=== PATIENT | male | born 1960 | race Caucasian/White ===

== ENCOUNTER 2016-02-27 14:01 | Emergency (ER) | payer OTHER ==
[~2016-02-27 14:01] MED LIST: ANAPROX DS550 MG PO; BACTRIM DS 8001 TAB PO; CIPRO HC 0.2%-110 ML OT; CLARITIN10 MG PO; CYCLOBENZAPRINE5 M3 PO; HYDROCODONE BIT1 T11 PO; HYDRODIURIL25 MG PO; KEFLEX500 M1 PO; KEFLEX500 MG PO; LOVASTATIN10 MG PO; Motrin,Rufen800 MG PO; NORCO 10-325 T1 EACH PO; NORCO 325 MG-51 TAB PO; NORCO 5-325 TA1 EACH PO; NORVASC10 MG PO; NORVASC5 MG PO; OMEPRAZOLE PO; OMEPRAZOLE20 M1 PO; PERCOCET; PERCOCET 325 MG1 TA7 PO; ULTRAM50 MG PO; VIBRAMYCIN100 MG PO; VICODIN 500 MG-1 TAB PO; ZOCOR20 MG PO
[2016-02-27 14:07] VITALS: BP 145/90
[2016-02-27] MEDS ORDERED: ZOFRAN ODT4 MG SL (14:24)
[2016-02-27] MEDS ORDERED: DOXYCYCLINE100 M3 PO (14:24)
[2016-04-04] MEDS ORDERED: PROVENTIL0.09 MG/A1 INH ×2 (05:43→08:44)
[2016-04-04] MEDS ORDERED: VIBRAMYCIN100 MG PO (08:44)
== END 2016-02-27 14:30 | disposition home or self-care (01) ==
LOC: ED 14:01
DX: J20.9 Acute bronchitis, unspecified (principal); I10 Essential (primary) hypertension

== ENCOUNTER 2016-05-18 03:45 | Inpatient (IN) | payer OTHER ==
[2016-05-18] VITALS (12 sets, daily range): BP systolic 114–162; BP diastolic 65–107
[~2016-05-18] VITALS: Ht 172.7 cm; Wt 91.3 kg
--- NOTE | ~2016-05-18 | ST ---
[place], [place] EXERCISE STRESS TEST REPORT [facility]: [id number] #: [id number] ROOM: 503 DOCTOR: CAS RUBIN MD BIRTHDATE: [birth year] DOS: 05/19/2016 LEXISCAN STRESS EKG REPORT REFERRING PHYSICIAN: Dr. Browne. INDICATION: Central chest pain. The patient's baseline EKG shows normal sinus rhythm with an incomplete right bundle-branch block with a baseline heart rate of 67 beats per minute and blood pressure of 114/66. The patient's peak heart rate was 104 with a blood pressure of 126/76. The patient had no chest pain. No EKG changes. No arrhythmias noted. SUMMARY OF FINDINGS: 1. Unremarkable Lexiscan stress EKG. 2. Please see separate report for perfusion scan results. CAS RUBIN MD CM:STRESS:EXERCISE STRESS TEST REPORT [id number] CAS RUBIN MD
[~2016-05-18 03:45] MED LIST changes: +DOXYCYCLINE100 M3 PO; +PROVENTIL0.09 MG/A1 INH; +ZOFRAN ODT4 MG SL
[2016-05-18 04:31] LABS: BASO # 0.1 10*3/uL (0.0-0.1); BASO % 0.8 % (0.0-1.0); EOS # 0.3 10*3/uL (0.0-0.4); EOS % 3.9 % (1.0-4.0); HEMATOCRIT 43.2 % (42.0-52.0); HEMOGLOBIN 14.9 g/dl (14.0-18.0); LYMPH # 2.6 10*3/uL (1.3-4.4); LYMPH % 34.6 % (27.0-41.0); MEAN CELL VOLUME 84.5 fl (80.0-94.0); MEAN CORPUSCULAR HGB 29.2 pg (27.0-31.0); MEAN CORPUSCULAR HGB CONC 34.5 g/dl (33.0-37.0); MEAN PLATELET VOLUME 9.1 fl (9.6-12.3); MONO # 0.4 10*3/uL (0.1-1.0); MONO % 4.8 % (3.0-9.0); NEUT # 4.1 10*3/uL (2.3-7.9); NEUT % 55.5 % (47.0-73.0); PLATELET COUNT AUTOMATED 245 10*3/uL (130-400); RED BLOOD COUNT 5.11 10*6/uL (4.50-5.90); RED CELL DISTRI WIDTH 13.6 % (0-14.5); WHITE BLOOD COUNT 7.4 10*3/uL (4.8-10.8)
[2016-05-18 04:41] LABS: INTERNATIONAL NORM RATIO 0.9 (2.0-3.5); PROTHROMBIN TIME 9.5 SECONDS (9.0-12.4)
[2016-05-18 04:48] LABS: ALKALINE PHOSPHATASE 68 U/L (45-117); BILIRUBIN, TOTAL 0.3 mg/dl (0.2-1.0); BUN 11 mg/dl (7-24); CARBON DIOXIDE 22 mmol/L (21-32); CHLORIDE 106 mmol/L (98-107); EST GLOM FILT AFRICAN AMERICAN > 60 ml/min; GLUCOSE 108 mg/dL (65-99); POTASSIUM 3.9 mmol/L (3.5-5.1); SGOT/AST 12 IU/L (3-35); SGPT/ALT 37 U/L (12-78); SODIUM 140 mmol/L (136-145); TOTAL PROTEIN 7.3 gm/dL (6.4-8.2)
[2016-05-18 04:49] LABS: TROPONIN I < 0.015 ng/ml (<0.045)
[2016-05-18 05:17] LABS: BILIRUBIN NEGATIVE (NEGATIVE); BLOOD NEGATIVE (NEGATIVE); CLARITY CLEAR (CLEAR); COLOR YELLOW (YELLOW); GLUCOSE NEGATIVE (NEGATIVE); KETONE NEGATIVE (NEGATIVE); LEUKO ESTERASE NEGATIVE (NEGATIVE); NITRITE NEGATIVE (NEGATIVE); PROTEIN NEGATIVE (NEGATIVE); UROBILINOGEN 0.2 E.U./dl (0.2-1.0)
[2016-05-18 05:27] LABS: BACTERIA TRACE; EPITHELIAL CELLS 0-2; RBC 0-2 rbc/hpf (0-2); URINE REFLEX COMMENT NO (NO); WBC 0-2 wbc/hpf (0-5)
[2016-05-18 07:47] LABS: BASO # 0.1 10*3/uL (0.0-0.1); BASO % 0.6 % (0.0-1.0); EOS # 0.1 10*3/uL (0.0-0.4); EOS % 1.3 % (1.0-4.0); HEMATOCRIT 46.7 % (42.0-52.0); LYMPH # 1.9 10*3/uL (1.3-4.4); LYMPH % 18.9 % (27.0-41.0); MEAN CELL VOLUME 84.6 fl (80.0-94.0); MEAN CORPUSCULAR HGB CONC 34.3 g/dl (33.0-37.0); MONO # 0.4 10*3/uL (0.1-1.0); MONO % 4.1 % (3.0-9.0); NEUT # 7.3 10*3/uL (2.3-7.9); NEUT % 74.8 % (47.0-73.0); PLATELET COUNT AUTOMATED 289 10*3/uL (130-400); RED BLOOD COUNT 5.52 10*6/uL (4.50-5.90); RED CELL DISTRI WIDTH 13.8 % (0-14.5); WHITE BLOOD COUNT 9.8 10*3/uL (4.8-10.8)
[2016-05-18 08:19] LABS: BUN 10 mg/dl (7-24); CARBON DIOXIDE 22 mmol/L (21-32); CHLORIDE 106 mmol/L (98-107); CHOLESTEROL 258 mg/dL (<200); EST GLOM FILT AFRICAN AMERICAN > 60 ml/min; GLUCOSE 104 mg/dL (65-99); MAGNESIUM 2.5 mg/dL (1.5-2.1); PHOSPHOROUS 1.5 mg/dL (2.5-4.9); SODIUM 139 mmol/L (136-145); TRIGLYCERIDES 191 mg/dl (<150); VLDL CHOLESTEROL 38 mg/dL (6-40)
[2016-05-18 08:21] LABS: INTERNATIONAL NORM RATIO 0.9 (2.0-3.5); PROTHROMBIN TIME 9.3 SECONDS (9.0-12.4)
[2016-05-18 08:27] LABS: FREE T4 0.91 ng/dl (0.76-1.46); HDL CHOLESTEROL 56 mg/dl (40-60); LDL CHOLESTEROL 164 mg/dL (9-159); THYROID STIM HORMONE (HS) 0.895 uIU/ml (0.358-4.75)
[2016-05-18 08:28] LABS: HEMOGLOBIN A1c 5.6 % (4.8-5.6)
[2016-05-18 12:13] LABS: CKMB 0.8 ng/ml (0.5-3.6); CPK 60 U/L (39-308)
[2016-05-18 12:14] LABS: TROPONIN I < 0.015 ng/ml (<0.045)
[2016-05-18 18:15] LABS: CKMB 0.8 ng/ml (0.5-3.6); CPK 55 U/L (39-308)
[2016-05-18 18:16] LABS: TROPONIN I < 0.015 ng/ml (<0.045)
[2016-05-19] VITALS: BP 133/97
[2016-05-19 00:14] LABS: CKMB 0.6 ng/ml (0.5-3.6); CPK 54 U/L (39-308)
[2016-05-19 00:15] LABS: TROPONIN I < 0.015 ng/ml (<0.045)
[2016-05-19 06:03] LABS: BASO # 0.1 10*3/uL (0.0-0.1); BASO % 0.8 % (0.0-1.0); EOS # 0.3 10*3/uL (0.0-0.4); EOS % 3.1 % (1.0-4.0); HEMATOCRIT 47.6 % (42.0-52.0); HEMOGLOBIN 16.3 g/dl (14.0-18.0); LYMPH # 2.8 10*3/uL (1.3-4.4); LYMPH % 28.8 % (27.0-41.0); MEAN CELL VOLUME 84.4 fl (80.0-94.0); MEAN CORPUSCULAR HGB 28.9 pg (27.0-31.0); MEAN CORPUSCULAR HGB CONC 34.2 g/dl (33.0-37.0); MEAN PLATELET VOLUME 9.1 fl (9.6-12.3); MONO # 0.5 10*3/uL (0.1-1.0); MONO % 5.5 % (3.0-9.0); NEUT # 5.9 10*3/uL (2.3-7.9); NEUT % 61.5 % (47.0-73.0); PLATELET COUNT AUTOMATED 278 10*3/uL (130-400); RED BLOOD COUNT 5.64 10*6/uL (4.50-5.90); WHITE BLOOD COUNT 9.6 10*3/uL (4.8-10.8)
[2016-05-19 06:27] LABS: BUN 10 mg/dl (7-24); CARBON DIOXIDE 24 mmol/L (21-32); CHLORIDE 110 mmol/L (98-107); EST GLOM FILT AFRICAN AMERICAN > 60 ml/min; GLUCOSE 107 mg/dL (65-99); POTASSIUM 4.3 mmol/L (3.5-5.1); SODIUM 142 mmol/L (136-145)
[2016-05-19 06:31] LABS: INTERNATIONAL NORM RATIO 0.9 (2.0-3.5)
[2016-05-19 08:00] VITALS: BP 110/50
[2016-05-19 12:00] VITALS: BP 131/98
[2016-05-19] MEDS ORDERED: XARE20MG PO (15:20)
[2016-05-19] MEDS ORDERED: METOPROLOL SUC100 M1 PO (15:20)
[2016-05-19] MEDS ORDERED: ASPIRIN CHEWABL81 M1 PO (15:20)
[2016-05-19] MEDS ORDERED: ATORVASTATIN CA40 M1 PO (15:20)
== END 2016-05-19 16:00 | disposition home or self-care (01) | DRG 309 ==
LOC: ED 03:45 → 5E 06:02 → EDHOLD 06:02 → 5E 07:37
PROVIDERS: Emergency Medicine Emergency Medical Services; Internal Medicine; Student in an Organized Health Care Education/Training Program
DX: I48.1 Persistent atrial fibrillation (principal); Q25.43 Congenital aneurysm of aorta; I71.2 Thoracic aortic aneurysm, without rupture; R13.10 Dysphagia, unspecified; S00.03XA Contusion of scalp, initial encounter; I10 Essential (primary) hypertension; E78.5 Hyperlipidemia, unspecified; I45.10 Unspecified right bundle-branch block; I25.2 Old myocardial infarction; Z87.891 Personal history of nicotine dependence; Z82.49 Family history of ischemic heart disease and other diseases of the circulatory system; Z80.9 Family history of malignant neoplasm, unspecified; Z79.51 Long term (current) use of inhaled steroids; Z79.2 Long term (current) use of antibiotics; Z79.899 Other long term (current) drug therapy

== ENCOUNTER 2016-08-02 10:40 | Emergency (ER) | payer OTHER ==
[~2016-08-02] VITALS: Wt 94.3 kg
[~2016-08-02 10:40] MED LIST changes: +ASPIRIN CHEWABL81 M1 PO; +ATORVASTATIN CA40 M1 PO; +METOPROLOL SUC100 M1 PO; +XARE20MG PO
[2016-08-02 10:47] VITALS: BP 147/97
[2016-08-02] MEDS ORDERED: ZESTRIL,PRINIVIL5 MG PO (10:48)
[2016-08-02 11:11] LABS: BASO # 0.1 10*3/uL (0.0-0.1); EOS # 0.2 10*3/uL (0.0-0.4); HEMATOCRIT 42.5 % (42.0-52.0); HEMOGLOBIN 14.5 g/dl (14.0-18.0); LYMPH # 2.4 10*3/uL (1.3-4.4); LYMPH % 34.4 % (27.0-41.0); MEAN CELL VOLUME 84.5 fl (80.0-94.0); MEAN CORPUSCULAR HGB 28.8 pg (27.0-31.0); MEAN CORPUSCULAR HGB CONC 34.1 g/dl (33.0-37.0); MEAN PLATELET VOLUME 9.1 fl (9.6-12.3); MONO # 0.4 10*3/uL (0.1-1.0); MONO % 5.8 % (3.0-9.0); NEUT % 55.5 % (47.0-73.0); PLATELET COUNT AUTOMATED 232 10*3/uL (130-400); RED BLOOD COUNT 5.03 10*6/uL (4.50-5.90); RED CELL DISTRI WIDTH 13.7 % (0-14.5); WHITE BLOOD COUNT 7.1 10*3/uL (4.8-10.8)
[2016-08-02 11:28] LABS: BUN 9 mg/dl (7-24); CARBON DIOXIDE 24 mmol/L (21-32); CHLORIDE 106 mmol/L (98-107); EST GLOM FILT AFRICAN AMERICAN > 60 ml/min; GLUCOSE 96 mg/dL (65-99); POTASSIUM 3.6 mmol/L (3.5-5.1); SODIUM 144 mmol/L (136-145); TROPONIN I < 0.015 ng/ml (<0.045)
[2016-08-02] MEDS ORDERED: NASONEX0.05 MG/AC NAS (12:15)
== END 2016-08-02 12:34 | disposition home or self-care (01) ==
LOC: ED 10:40
PROVIDERS: Emergency Medicine
DX: J06.9 Acute upper respiratory infection, unspecified (principal); R42 Dizziness and giddiness; I10 Essential (primary) hypertension; E78.5 Hyperlipidemia, unspecified; I25.2 Old myocardial infarction; I48.91 Unspecified atrial fibrillation; Z79.82 Long term (current) use of aspirin; Z79.899 Other long term (current) drug therapy; Z87.891 Personal history of nicotine dependence

== ENCOUNTER 2016-10-05 17:18 | Emergency (ER) | payer OTHER ==
[~2016-10-05] VITALS: Wt 93.4 kg
[~2016-10-05 17:18] MED LIST changes: +NASONEX0.05 MG/AC NAS; +ZESTRIL,PRINIVIL5 MG PO
[2016-10-05 17:24] VITALS: BP 143/93
[2016-10-05 18:02] LABS: BASO # 0.1 10*3/uL (0.0-0.1); BASO % 1.2 % (0.0-1.0); EOS # 0.3 10*3/uL (0.0-0.4); EOS % 4.3 % (1.0-4.0); HEMATOCRIT 40.1 % (42.0-52.0); HEMOGLOBIN 13.6 g/dl (14.0-18.0); LYMPH # 2.9 10*3/uL (1.3-4.4); LYMPH % 43.1 % (27.0-41.0); MEAN CELL VOLUME 86.8 fl (80.0-94.0); MEAN CORPUSCULAR HGB 29.4 pg (27.0-31.0); MEAN CORPUSCULAR HGB CONC 33.9 g/dl (33.0-37.0); MEAN PLATELET VOLUME 9.2 fl (9.6-12.3); MONO # 0.3 10*3/uL (0.1-1.0); MONO % 4.6 % (3.0-9.0); NEUT # 3.2 10*3/uL (2.3-7.9); NEUT % 46.7 % (47.0-73.0); PLATELET COUNT AUTOMATED 218 10*3/uL (130-400); RED BLOOD COUNT 4.62 10*6/uL (4.50-5.90); RED CELL DISTRI WIDTH 13.9 % (0-14.5); WHITE BLOOD COUNT 6.8 10*3/uL (4.8-10.8)
[2016-10-05 18:11] LABS: ACT PARTIAL THROMBO TIME 25.6 SECONDS (20.8-31.5); INTERNATIONAL NORM RATIO 0.9 (2.0-3.5)
[2016-10-05 18:18] LABS: ALBUMIN 3.7 gm/dl (3.1-4.5); ALKALINE PHOSPHATASE 65 U/L (45-117); BUN 9 mg/dl (7-24); CHLORIDE 107 mmol/L (98-107); CREATININE 1.35 mg/dL (0.70-1.30); POTASSIUM 3.9 mmol/L (3.5-5.1); SGOT/AST 9 IU/L (3-35); SGPT/ALT 24 U/L (12-78); SODIUM 140 mmol/L (136-145); TOTAL PROTEIN 6.6 gm/dL (6.4-8.2)
[2016-10-05] MEDS ORDERED: FLAGYL500 MG PO (19:51)
[2016-10-05] MEDS ORDERED: CIPRO250 MG PO (19:51)
== END 2016-10-05 20:39 | disposition home or self-care (01) ==
LOC: ED 17:18
PROVIDERS: Nurse Practitioner
DX: K52.9 Noninfective gastroenteritis and colitis, unspecified (principal); Z79.899 Other long term (current) drug therapy; Z87.891 Personal history of nicotine dependence

== ENCOUNTER 2016-10-07 16:08 | Emergency (ER) | payer OTHER ==
[~2016-10-07] VITALS: Ht 172.7 cm; Wt 93.4 kg
[~2016-10-07 16:08] MED LIST changes: +CIPRO250 MG PO; +FLAGYL500 MG PO
[2016-10-07 18:44] VITALS: BP 154/110
[2016-10-07] MEDS ORDERED: Motrin,Rufen800 MG PO ×2 (18:55→19:14)
== END 2016-10-07 19:09 | disposition home or self-care (01) ==
LOC: ED 16:08
DX: S50.12XA Contusion of left forearm, initial encounter (principal); M25.512 Pain in left shoulder; R51 Headache; M54.9 Dorsalgia, unspecified; M79.601 Pain in right arm; E78.5 Hyperlipidemia, unspecified; I10 Essential (primary) hypertension; I25.2 Old myocardial infarction; I48.91 Unspecified atrial fibrillation; Z79.899 Other long term (current) drug therapy; Z87.891 Personal history of nicotine dependence; V43.52XA Car driver injured in collision with other type car in traffic accident, initial encounter; Y93.89 Activity, other specified; Y92.413 State road as the place of occurrence of the external cause; Y99.8 Other external cause status

== ENCOUNTER 2016-10-29 09:03 | Emergency (ER) | payer OTHER ==
[~2016-10-29] VITALS: Ht 175.2 cm; Wt 94.3 kg
[2016-10-29 09:10] VITALS: BP 161/99
[2016-10-29 09:58] LABS: BASO # 0.1 10*3/uL (0.0-0.1); BASO % 1.1 % (0.0-1.0); EOS # 0.2 10*3/uL (0.0-0.4); EOS % 2.8 % (1.0-4.0); HEMOGLOBIN 15.5 g/dl (14.0-18.0); LYMPH # 2.4 10*3/uL (1.3-4.4); LYMPH % 37.8 % (27.0-41.0); MEAN CELL VOLUME 85.2 fl (80.0-94.0); MEAN CORPUSCULAR HGB 28.7 pg (27.0-31.0); MEAN CORPUSCULAR HGB CONC 33.7 g/dl (33.0-37.0); MEAN PLATELET VOLUME 9.2 fl (9.6-12.3); MONO # 0.3 10*3/uL (0.1-1.0); MONO % 4.7 % (3.0-9.0); NEUT # 3.4 10*3/uL (2.3-7.9); NEUT % 53.4 % (47.0-73.0); PLATELET COUNT AUTOMATED 248 10*3/uL (130-400); RED CELL DISTRI WIDTH 13.6 % (0-14.5); WHITE BLOOD COUNT 6.4 10*3/uL (4.8-10.8)
[2016-10-29 10:13] LABS: ALBUMIN 4.2 gm/dl (3.1-4.5); ALKALINE PHOSPHATASE 69 U/L (45-117); BUN 13 mg/dl (7-24); CHLORIDE 106 mmol/L (98-107); CREATININE 1.21 mg/dL (0.70-1.30); POTASSIUM 3.9 mmol/L (3.5-5.1); SGOT/AST 15 IU/L (3-35); SGPT/ALT 30 U/L (12-78); SODIUM 137 mmol/L (136-145); TOTAL PROTEIN 7.5 gm/dL (6.4-8.2)
[2016-10-29 10:29] LABS: BILIRUBIN 1+ (NEGATIVE); BLOOD TRACE-INTACT (NEGATIVE); CLARITY CLEAR (CLEAR); GLUCOSE TRACE (NEGATIVE); KETONE NEGATIVE (NEGATIVE); LEUKO ESTERASE NEGATIVE (NEGATIVE); NITRITE POSITIVE (NEGATIVE); PH 6.5 (5.0-9.0)
[2016-10-29 10:47] LABS: COLOR ORANGE (YELLOW); WBC 0-2 wbc/hpf (0-5)
[2016-10-29] MEDS ORDERED: LEVOFLOXACIN500 MG PO (11:39)
[2016-10-29] MEDS ORDERED: ZOFRAN ODT4 MG SL (11:40)
== END 2016-10-29 12:08 | disposition home or self-care (01) ==
LOC: ED 09:03
PROVIDERS: Emergency Medicine
DX: N39.0 Urinary tract infection, site not specified (principal); K40.90 Unilateral inguinal hernia, without obstruction or gangrene, not specified as recurrent; I10 Essential (primary) hypertension; E78.5 Hyperlipidemia, unspecified; Z87.891 Personal history of nicotine dependence

== ENCOUNTER 2017-01-21 17:12 | Emergency (ER) | payer OTHER ==
[~2017-01-21] VITALS: Ht 172.7 cm; Wt 95.3 kg
[~2017-01-21 17:12] MED LIST changes: +LEVOFLOXACIN500 MG PO
[2017-01-21 17:15] VITALS: BP 160/99
[2017-01-21] MEDS ORDERED: AUGMENTIN 875875 MG PO (19:02)
== END 2017-01-21 19:06 | disposition home or self-care (01) ==
LOC: ED 17:12
DX: J01.00 Acute maxillary sinusitis, unspecified (principal); E78.5 Hyperlipidemia, unspecified; I10 Essential (primary) hypertension; I48.91 Unspecified atrial fibrillation; Z87.891 Personal history of nicotine dependence; Z79.899 Other long term (current) drug therapy

== ENCOUNTER → 2017-03-13 | Day surgery (SDC) | payer OTHER ==
[2017-03-12 11:38] LABS: BUN 10 mg/dl (7-24); CHLORIDE 105 mmol/L (98-107); CREATININE 1.12 mg/dL (0.70-1.30); SODIUM 138 mmol/L (136-145)
[~2017-03-13] VITALS: Ht 172.7 cm; Wt 95.3 kg
[~2017-03-13] MED LIST changes: +AUGMENTIN 875875 MG PO
[2017-03-13 07:08] VITALS: BP 126/86
[2017-03-13 08:57] VITALS: BP 110/63
[2017-03-13 09:08] VITALS: BP 126/69
[2017-03-13 09:30] VITALS: BP 135/88
== END ==
LOC: SDC 03-12 10:15
DX: L72.0 Epidermal cyst (principal); D23.21 Other benign neoplasm of skin of right ear and external auricular canal; I25.2 Old myocardial infarction; I10 Essential (primary) hypertension; J45.909 Unspecified asthma, uncomplicated; K21.9 Gastro-esophageal reflux disease without esophagitis; F41.9 Anxiety disorder, unspecified; Z87.891 Personal history of nicotine dependence; Z98.890 Other specified postprocedural states; Z79.899 Other long term (current) drug therapy; F32.9 Major depressive disorder, single episode, unspecified; I25.10 Atherosclerotic heart disease of native coronary artery without angina pectoris; Z87.442 Personal history of urinary calculi; Z82.49 Family history of ischemic heart disease and other diseases of the circulatory system; Z80.9 Family history of malignant neoplasm, unspecified

== ENCOUNTER 2017-07-07 13:59 | Emergency (ER) | payer OTHER ==
[~2017-07-07] VITALS: Ht 172.7 cm; Wt 95.3 kg
[2017-07-07 14:04] VITALS: BP 133/91
[2017-07-07] MEDS ORDERED: NAPROSYN500 MG PO (14:09)
[2017-07-07] MEDS ORDERED: CHLORZOXAZONE500 M2 PO (14:09)
== END 2017-07-07 14:22 | disposition home or self-care (01) ==
LOC: ED 13:59
DX: M54.41 Lumbago with sciatica, right side (principal); E78.5 Hyperlipidemia, unspecified; I10 Essential (primary) hypertension; Z98.890 Other specified postprocedural states; Z87.891 Personal history of nicotine dependence; Z79.899 Other long term (current) drug therapy

== ENCOUNTER 2017-11-29 13:52 | Emergency (ER) | payer OTHER ==
[~2017-11-29] VITALS: Ht 172.7 cm; Wt 95.3 kg
[~2017-11-29 13:52] MED LIST changes: +CHLORZOXAZONE500 M2 PO; +NAPROSYN500 MG PO
[2017-11-29 14:34] VITALS: BP 138/90
[2017-11-29] MEDS ORDERED: ZYRTEC10 MG PO (14:49)
[2017-11-29] MEDS ORDERED: FLONASE ALLERG9.9 ML NAS (14:49)
[2017-11-29] MEDS ORDERED: Zofran4 MG SL (14:49)
[2017-11-29] MEDS ORDERED: PREDNISONE20 M1 PO (14:49)
[2017-11-29] MEDS ORDERED: PROAIR HFA8.5 GM INH (14:50)
[2017-11-29] MEDS ORDERED: CLARITIN10 MG PO (14:57)
== END 2017-11-29 15:03 | disposition home or self-care (01) ==
LOC: ED 13:52
DX: J06.9 Acute upper respiratory infection, unspecified (principal); J45.909 Unspecified asthma, uncomplicated; I10 Essential (primary) hypertension; I25.2 Old myocardial infarction; Z79.899 Other long term (current) drug therapy; Z87.891 Personal history of nicotine dependence

== ENCOUNTER 2018-01-20 12:40 | Emergency (ER) | payer OTHER ==
[~2018-01-20] VITALS: Ht 172.7 cm; Wt 95.7 kg
[~2018-01-20 12:40] MED LIST changes: +FLONASE ALLERG9.9 ML NAS; +PREDNISONE20 M1 PO; +PROAIR HFA8.5 GM INH; +ZYRTEC10 MG PO; +Zofran4 MG SL
[2018-01-20 12:45] VITALS: BP 139/105
== END 2018-01-20 14:35 | disposition left against medical advice (07) ==
LOC: ED 12:40
DX: H92.03 Otalgia, bilateral (principal); Z87.891 Personal history of nicotine dependence; Z79.899 Other long term (current) drug therapy

== ENCOUNTER 2018-04-21 11:05 | Emergency (ER) | payer OTHER ==
[~2018-04-21] VITALS: Ht 172.7 cm; Wt 95.3 kg
[2018-04-21 11:07] VITALS: BP 154/90
[2018-04-21] MEDS ORDERED: ZYRTEC10 MG PO (11:57)
[2018-04-21] MEDS ORDERED: PREDNISONE50 MG PO (11:57)
[2018-04-21] MEDS ORDERED: FLONASE ALLERG9.9 ML NAS (11:57)
[2018-04-21] MEDS ORDERED: AUGMENTIN 875-875 MG PO (11:57)
== END 2018-04-21 12:07 | disposition home or self-care (01) ==
LOC: ED 11:05
DX: J01.00 Acute maxillary sinusitis, unspecified (principal); J01.10 Acute frontal sinusitis, unspecified; I10 Essential (primary) hypertension; I48.91 Unspecified atrial fibrillation; I25.2 Old myocardial infarction; Z79.899 Other long term (current) drug therapy; Z87.891 Personal history of nicotine dependence

== ENCOUNTER 2018-05-12 14:24 | Inpatient (IN) | payer OTHER ==
[2018-05-12] VITALS (7 sets, daily range): BP systolic 114–151; BP diastolic 64–91
[~2018-05-12] VITALS: Ht 172.7 cm; Wt 91.8 kg
--- NOTE | ~2018-05-12 | EKG ---
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
--- NOTE | ~2018-05-12 | EKG ---
[place], [place] ELECTROCARDIOGRAM REPORT NAME: CT DAVIS V UNIT #: [id number] ROOM: 505 DOCTOR: EPIPHANY DRAFT REPORT BIRTHDATE: [birth year] [facility] Test Date: 2018-05-12 Test Time: 17:02:56 Pat Name: CT DAVIS Department: Room: 505 Gender: M Stitcher Operator: Jason Javed : 1960 Requested By: REJI WILLIS DNP Order Number: [id number] Reading MD: Tamir Martinez MD Measurements Intervals [place] Rate: 50 P: 31 MD: 150 QRS: -13 QRSD: 140 T: 10 QT: 447 QTc: 408 Interpretive Statements Sinus rhythm Right bundle branch block Baseline wander in lead(s) V5 Electronically Signed On 05-14-2018 4:15:18 PDT by Tamir Martinez MD CM:EKGRPT:ELECTROCARDIOGRAM REPORT [id number] REJI WILLIS DNP EPIPHANY DRAFT REPORT REJI WILLIS DNP
--- NOTE | ~2018-05-12 | EKG ---
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
[~2018-05-12 14:24] MED LIST changes: +AUGMENTIN 875-875 MG PO; +PREDNISONE50 MG PO
[2018-05-12 14:51] LABS: BASO # 0.1 10*3/uL (0.0-0.1); BASO % 0.9 % (0.0-1.0); EOS # 0.3 10*3/uL (0.0-0.4); HEMATOCRIT 43.5 % (42.0-52.0); HEMOGLOBIN 14.6 g/dl (14.0-18.0); LYMPH # 2.7 10*3/uL (1.3-4.4); LYMPH % 34.4 % (27.0-41.0); MEAN CELL VOLUME 85.8 fl (80.0-94.0); MEAN CORPUSCULAR HGB 28.8 pg (27.0-31.0); MEAN CORPUSCULAR HGB CONC 33.6 g/dl (33.0-37.0); MEAN PLATELET VOLUME 9.2 fl (9.6-12.3); MONO # 0.4 10*3/uL (0.1-1.0); MONO % 5.2 % (3.0-9.0); NEUT # 4.4 10*3/uL (2.3-7.9); NEUT % 55.2 % (47.0-73.0); PLATELET COUNT AUTOMATED 253 10*3/uL (130-400); RED BLOOD COUNT 5.07 10*6/uL (4.50-5.90); RED CELL DISTRI WIDTH 13.9 % (0-14.5); WHITE BLOOD COUNT 7.9 10*3/uL (4.8-10.8)
[2018-05-12 14:59] LABS: ACT PARTIAL THROMBO TIME 23.8 SECONDS (20.8-31.5); INTERNATIONAL NORM RATIO 0.9 (2.0-3.5)
[2018-05-12 15:14] LABS: ALBUMIN 3.8 gm/dl (3.1-4.5); ALKALINE PHOSPHATASE 73 U/L (45-117); BUN 8 mg/dl (7-24); CHLORIDE 105 mmol/L (98-107); CREATININE 1.08 mg/dL (0.70-1.30); POTASSIUM 4.1 mmol/L (3.5-5.1); SGOT/AST 13 IU/L (3-35); SGPT/ALT 27 U/L (12-78); SODIUM 138 mmol/L (136-145)
[2018-05-12 15:18] LABS: TROPONIN I < 0.015 ng/ml (<0.045)
--- NOTE | 2018-05-12 17:28 | NUR ---
PER DR. HOLLIDAY PT MUST HAVE CT HEAD FIRST BEFORE BEING TAKEN TO INPATIENT ROOM FOR ADMISSION.
--- NOTE | 2018-05-12 20:15 | NUR ---
A 58, admitted to 5E, under the services of KADEN Parr DO with a diagnosis of CHEST HEAVINESS. Chief complaint is SOB,CHEST HEAVINESS, NUMBNESS IN ARMS AND LEGS. Patient arrived via wheel chair from ER. Monitor applied. Initial assessment completed. Vital signs taken and recorded. KADEN PARR DO notified of admission to the unit. Orders received. See assessment for past medical history, medications and allergies. Patient and/or family oriented to unit. [facility] visitation policy reviewed. Clothing/patient valuable form completed. TESFAYE GLASS
--- NOTE | 2018-05-12 23:30 | NUR ---
ASSUMED CARE FOR THIS PT AT THIS TIME. NO C/O VOICED. CALL LIGHT IN REACH.
[2018-05-13] VITALS: BP 142/82
--- NOTE | 2018-05-13 05:28 | NUR ---
PT MEDICATED W/TYLENOL FOR C/O H/A. PT REMINDED OF TESTING TO BE DONE TODAY. CALL LIGHT IN REACH.
[2018-05-13 06:55] LABS: BASO # 0.1 10*3/uL (0.0-0.1); BASO % 0.8 % (0.0-1.0); EOS # 0.2 10*3/uL (0.0-0.4); EOS % 2.9 % (1.0-4.0); HEMATOCRIT 44.6 % (42.0-52.0); HEMOGLOBIN 15.2 g/dl (14.0-18.0); LYMPH # 2.1 10*3/uL (1.3-4.4); LYMPH % 27.8 % (27.0-41.0); MEAN CORPUSCULAR HGB CONC 34.1 g/dl (33.0-37.0); MEAN PLATELET VOLUME 9.2 fl (9.6-12.3); MONO # 0.3 10*3/uL (0.1-1.0); MONO % 4.2 % (3.0-9.0); NEUT # 4.9 10*3/uL (2.3-7.9); NEUT % 63.9 % (47.0-73.0); PLATELET COUNT AUTOMATED 235 10*3/uL (130-400); RED BLOOD COUNT 5.25 10*6/uL (4.50-5.90); RED CELL DISTRI WIDTH 13.9 % (0-14.5); WHITE BLOOD COUNT 7.7 10*3/uL (4.8-10.8)
[2018-05-13 07:29] LABS: ACT PARTIAL THROMBO TIME 29.1 SECONDS (20.8-31.5)
[2018-05-13 07:36] LABS: ALBUMIN 3.8 gm/dl (3.1-4.5); ALKALINE PHOSPHATASE 76 U/L (45-117); BUN 10 mg/dl (7-24); CHLORIDE 108 mmol/L (98-107); CHOLESTEROL 242 mg/dL (<200); CREATININE 1.03 mg/dL (0.70-1.30); FREE T4 1.12 ng/dl (0.76-1.46); HDL CHOLESTEROL 47 mg/dl (40-60); LDL CHOLESTEROL 169 mg/dL (9-159); PHOSPHOROUS 2.8 mg/dL (2.5-4.9); POTASSIUM 3.9 mmol/L (3.5-5.1); SGOT/AST 10 IU/L (3-35); SGPT/ALT 28 U/L (12-78); SODIUM 140 mmol/L (136-145); TOTAL PROTEIN 7.1 gm/dL (6.4-8.2); TRIGLYCERIDES 132 mg/dl (<150); VLDL CHOLESTEROL 26 mg/dL (6-40)
[2018-05-13 08:00] VITALS: BP 140/82
--- NOTE | 2018-05-13 10:14 | NUR ---
INFORMED SIGNED CONSENT FOR [facility] DR CARPENTER. RESTING EKG RBB HR 54 BP 150/90 IN SUPINE POSITION. STANDING HR 65 BP 138/88. PT COMPLETED 4:00 OF A JACQUELIN PROTOCOL WITH PT COMPLETING ONE MINUTE OF STAFE II AT 2.5 MPH AND A 12% GRADE. NO ARRHYTMIAS NOTED. NON DIAGNOSTIC ST CHANGES SEEN. PT C/O SOB, TEST TERMINATED DUE TO FATIGUE. PT REACHED A PEAK HR OF 156 WHICH REPRESENTS 96% OF PREDICTED MAXIMUM AND A PEAK BP OF 92. PT IN STABLE CONDITION, AWAITING NUCLEAR IMAGES WITH A HR OF 92 BP 146/82.
--- NOTE | 2018-05-13 14:22 | NUR ---
Health Care Sanitary Technician in to talk to patient. Patient states lives at HOME with . There are NO steps in the home. Physician: Brett DA SILVA [facility]acy: [facility] Home health services: NONE Patient's level of ADLs: INDEPENDENT Patient has working utilities: YES DME: NEBULIZER Follow-up physician's appointment after d/c: WILL BE MADE BY HOSPITALIST NURSE DIRECTOR ON DISCHARGE Does patient want to access PORTAL?: NO Discharge plan PT LIVES AT HOME WITH HIS AND IS INDEPENDENT IN CARE. DENIES HOME NEEDS ON DISCHARGE. WILL CONTINUE TO FOLLOW. HAS A RIDE HOME.. YARITZA COSME
[2018-05-13 16:00] VITALS: BP 138/98
--- NOTE | 2018-05-13 16:30 | NUR ---
Discharge instructions reviewed with patient/family. Patient receptive and verbalizes understanding. Follow-up care arranged. Written instructions given to patient/family. Patient ambulated from unit with all personal belongings and was educated on medications. URVASHI MARTINEZ
[2018-05-13] MEDS ORDERED: CRESTOR5 MG PO (16:35)
[2018-05-13] MEDS ORDERED: ASPIRIN81 M1 PO (16:35)
== END 2018-05-13 16:30 | disposition home or self-care (01) | DRG 392 ==
LOC: ED 14:24 → EDHOLD 16:43 → ED 16:43 → EDHOLD 17:16 → 5E 17:16 → EDHOLD 19:12 → 5E 19:16
PROVIDERS: Internal Medicine; Nurse Practitioner Family; ADMIT Internal Medicine
PROC: 4A02XM4 Measurement of Cardiac Total Activity, External Approach (ICD-10-PCS; principal; 2018-05-13)
PROC: 3E073KZ Introduction of Other Diagnostic Substance into Coronary Artery, Percutaneous Approach (ICD-10-PCS; principal; 2018-05-13)
DX: K21.9 Gastro-esophageal reflux disease without esophagitis (principal); J45.20 Mild intermittent asthma, uncomplicated; I45.10 Unspecified right bundle-branch block; I10 Essential (primary) hypertension; M54.30 Sciatica, unspecified side; I20.8 Other forms of angina pectoris; I45.81 Long QT syndrome; I34.0 Nonrheumatic mitral (valve) insufficiency; I77.819 Aortic ectasia, unspecified site; M54.10 Radiculopathy, site unspecified; E78.5 Hyperlipidemia, unspecified; I48.0 Paroxysmal atrial fibrillation; Z79.82 Long term (current) use of aspirin; I25.2 Old myocardial infarction; Z87.440 Personal history of urinary (tract) infections; Z87.891 Personal history of nicotine dependence; Z82.49 Family history of ischemic heart disease and other diseases of the circulatory system; Z80.6 Family history of leukemia; Z79.899 Other long term (current) drug therapy

== ENCOUNTER → 2018-05-27 | Outpatient (CLI) | payer OTHER ==
[~2018-05-27] MED LIST changes: +ASPIRIN81 M1 PO; +CRESTOR5 MG PO
[2018-05-27 09:14] LABS: HEMATOCRIT 41.9 % (42.0-52.0); MEAN CELL VOLUME 87.8 fl (80.0-94.0); MEAN CORPUSCULAR HGB 29.4 pg (27.0-31.0); MEAN CORPUSCULAR HGB CONC 33.4 g/dl (33.0-37.0); RED BLOOD COUNT 4.77 10*6/uL (4.50-5.90); RED CELL DISTRI WIDTH 14.1 % (0-14.5); WHITE BLOOD COUNT 5.6 10*3/uL (4.8-10.8)
[2018-05-27 09:48] LABS: ALBUMIN 3.8 gm/dl (3.1-4.5); ALKALINE PHOSPHATASE 85 U/L (45-117); BUN 7 mg/dl (7-24); CHLORIDE 106 mmol/L (98-107); CHOLESTEROL 215 mg/dL (<200); CREATININE 1.05 mg/dL (0.70-1.30); HDL CHOLESTEROL 48 mg/dl (40-60); LDL CHOLESTEROL 142 mg/dL (9-159); POTASSIUM 3.9 mmol/L (3.5-5.1); SGOT/AST 19 IU/L (3-35); SGPT/ALT 44 U/L (12-78); SODIUM 138 mmol/L (136-145); TRIGLYCERIDES 127 mg/dl (<150); VLDL CHOLESTEROL 25 mg/dL (6-40)
[2018-05-27 09:55] LABS: THYROID STIM HORMONE (HS) 0.849 uIU/ml (0.358-4.75)
== END | disposition home or self-care (01) ==
LOC: LAB 08:46
PROVIDERS: Family Medicine
DX: Z12.5 Encounter for screening for malignant neoplasm of prostate (principal); M47.22 Other spondylosis with radiculopathy, cervical region; I10 Essential (primary) hypertension; E55.9 Vitamin D deficiency, unspecified; E78.00 Pure hypercholesterolemia, unspecified; R53.83 Other fatigue

== ENCOUNTER → 2018-05-30 | Outpatient (CLI) | payer OTHER | END | disposition home or self-care (01) | LOC: RAD 10:00 | DX: R06.02 Shortness of breath (principal); R07.89 Other chest pain; R05 Cough; M54.2 Cervicalgia; J45.909 Unspecified asthma, uncomplicated; I10 Essential (primary) hypertension; J44.9 Chronic obstructive pulmonary disease, unspecified; F17.210 Nicotine dependence, cigarettes, uncomplicated ==

== ENCOUNTER → 2019-10-21 | Outpatient (CLI) | payer OTHER ==
[2019-10-21 10:42] LABS: HEMATOCRIT 45.2 % (42.0-52.0); MEAN CELL VOLUME 84.8 fl (80.0-94.0); MEAN PLATELET VOLUME 9.3 fl (9.6-12.3); RED BLOOD COUNT 5.33 10*6/uL (4.50-5.90); RED CELL DISTRI WIDTH 13.5 % (0-14.5); WHITE BLOOD COUNT 12.2 10*3/uL (4.8-10.8)
[2019-10-21 11:09] LABS: ALBUMIN 4.1 gm/dl (3.1-4.5); ALKALINE PHOSPHATASE 75 U/L (45-117); BUN 15 mg/dl (7-24); CHLORIDE 107 mmol/L (98-107); CHOLESTEROL 252 mg/dL (<200); CPK 49 U/L (39-308); CREATININE 1.18 mg/dL (0.70-1.30); HDL CHOLESTEROL 44 mg/dl (40-60); LDL CHOLESTEROL 150 mg/dL (9-159); POTASSIUM 3.5 mmol/L (3.5-5.1); SGOT/AST 10 IU/L (3-35); SGPT/ALT 27 U/L (12-78); SODIUM 137 mmol/L (136-145); TOTAL PROTEIN 7.3 gm/dL (6.4-8.2); TRIGLYCERIDES 291 mg/dl (<150); VLDL CHOLESTEROL 58 mg/dL (6-40)
== END | disposition home or self-care (01) ==
LOC: LAB 10:11
PROVIDERS: ATTEND Family Medicine
DX: E78.00 Pure hypercholesterolemia, unspecified (principal); I10 Essential (primary) hypertension

== ENCOUNTER → 2020-03-10 | Outpatient (CLI) | payer OTHER ==
[2020-03-10 09:03] LABS: HEMATOCRIT 45.2 % (42.0-52.0); MEAN CELL VOLUME 85.1 fl (80.0-94.0); MEAN CORPUSCULAR HGB 28.1 pg (27.0-31.0); MEAN PLATELET VOLUME 9.2 fl (9.6-12.3); RED BLOOD COUNT 5.31 10*6/uL (4.50-5.90); RED CELL DISTRI WIDTH 13.4 % (0-14.5); WHITE BLOOD COUNT 9.5 10*3/uL (4.8-10.8)
[2020-03-10 09:31] LABS: ALBUMIN 4.1 gm/dl (3.1-4.5); ALKALINE PHOSPHATASE 92 U/L (45-117); BUN 11 mg/dl (7-24); CHLORIDE 109 mmol/L (98-107); CHOLESTEROL 254 mg/dL (<200); CPK 50 U/L (39-308); CREATININE 1.04 mg/dL (0.70-1.30); HDL CHOLESTEROL 50 mg/dl (40-60); LDL CHOLESTEROL 176 mg/dL (9-159); POTASSIUM 3.8 mmol/L (3.5-5.1); SGOT/AST 6 IU/L (3-35); SGPT/ALT 22 U/L (12-78); SODIUM 138 mmol/L (136-145); TOTAL PROTEIN 7.5 gm/dL (6.4-8.2); TRIGLYCERIDES 140 mg/dl (<150); VLDL CHOLESTEROL 28 mg/dL (6-40)
[2020-03-12 15:08] LABS: TESTOSTERONE FREE, (DIRECT) 4.7 pg/mL (7.2-24.0)
== END | disposition home or self-care (01) ==
LOC: LAB 08:44 → US 09:30
PROVIDERS: ATTEND Family Medicine
DX: N50.3 Cyst of epididymis (principal); N43.3 Hydrocele, unspecified; E78.00 Pure hypercholesterolemia, unspecified; I10 Essential (primary) hypertension; N50.811 Right testicular pain; N50.812 Left testicular pain; D64.9 Anemia, unspecified; Z12.5 Encounter for screening for malignant neoplasm of prostate

== ENCOUNTER → 2020-06-11 | Outpatient (CLI) | payer OTHER | END | disposition home or self-care (01) | LOC: COVID19 08:23 | PROVIDERS: ATTEND Family Medicine | DX: Z20.822 Contact with and (suspected) exposure to COVID-19 (principal) ==

== ENCOUNTER → 2020-08-18 | Outpatient (CLI) | payer OTHER ==
[2020-08-18 08:29] LABS: ALBUMIN 3.9 gm/dl (3.1-4.5); BILIRUBIN, DIRECT 0.1 mg/dL (0.0-0.2)
[2020-08-18 08:35] LABS: THYROID STIM HORMONE (HS) 0.373 uIU/ml (0.358-4.75)
[2020-08-19 04:07] LABS: LUTEINIZING HORMONE 1.7 mIU/mL (1.7-8.6)
== END | disposition home or self-care (01) ==
LOC: LAB 07:33
PROVIDERS: ATTEND Urology
DX: N41.9 Inflammatory disease of prostate, unspecified (principal); E29.1 Testicular hypofunction

== ENCOUNTER → 2021-02-15 | Outpatient (CLI) | payer OTHER ==
[~2021-02-15] MED LIST changes: +AMITRIPTYLINE50 MG PO; +COREG3.125 MG PO; +FLOMAX0.4 MG PO; +FLOVENT HFA10.6 GM INH; +GOOD NEIGHBOR500 M2 PO; +IMDUR SA30 MG PO; +LISINOPRIL20 MG PO; +OMEPRAZOLE40 MG PO; +TRELEGY ELLIPT1 EAC1 INH
== END | disposition home or self-care (01) ==
LOC: CARD 01-25 07:30
PROVIDERS: ATTEND Internal Medicine Cardiovascular Disease
DX: R07.9 Chest pain, unspecified (principal)

== ENCOUNTER → 2021-04-13 | Outpatient (CLI) | payer OTHER ==
[2021-04-13 09:27] LABS: HEMATOCRIT 41.2 % (42.0-52.0); MEAN CELL VOLUME 86.4 fl (80.0-94.0); MEAN CORPUSCULAR HGB 28.9 pg (27.0-31.0); MEAN CORPUSCULAR HGB CONC 33.5 g/dl (33.0-37.0); MEAN PLATELET VOLUME 8.9 fl (9.6-12.3); RED BLOOD COUNT 4.77 10*6/uL (4.50-5.90); RED CELL DISTRI WIDTH 13.5 % (0-14.5); WHITE BLOOD COUNT 7.3 10*3/uL (4.8-10.8)
[2021-04-13 09:45] LABS: ALKALINE PHOSPHATASE 91 U/L (45-117); BUN 7 mg/dl (7-24); CHLORIDE 106 mmol/L (98-107); CHOLESTEROL 179 mg/dL (<200); CPK 59 U/L (39-308); CREATININE 1.19 mg/dL (0.70-1.30); LDL CHOLESTEROL 100 mg/dL (9-159); POTASSIUM 3.9 mmol/L (3.5-5.1); SGOT/AST 12 IU/L (3-35); SGPT/ALT 32 U/L (12-78); SODIUM 136 mmol/L (136-145); TOTAL PROTEIN 7.2 gm/dL (6.4-8.2); TRIGLYCERIDES 134 mg/dl (<150)
== END | disposition home or self-care (01) ==
LOC: LAB 09:04
PROVIDERS: ATTEND Family Medicine
DX: R05.9 Cough, unspecified (principal); E78.00 Pure hypercholesterolemia, unspecified; R60.0 Localized edema; R06.02 Shortness of breath

== ENCOUNTER → 2021-06-28 | Outpatient (CLI) | payer OTHER | END | disposition home or self-care (01) | LOC: RAD 08:13 | PROVIDERS: ATTEND Internal Medicine | DX: R06.02 Shortness of breath (principal) ==

== ENCOUNTER → 2023-04-13 | Outpatient (CLI) | payer OTHER | END | disposition home or self-care (01) | LOC: US 08:27 | PROVIDERS: ATTEND Internal Medicine | DX: I73.9 Peripheral vascular disease, unspecified (principal) ==